=== PATIENT | male | born 1955 | race Caucasian/White ===

== ENCOUNTER 2020-06-05 08:54 | Outpatient (CLI) | payer MEDICARE, MEDICAID, SELFPAY ==
--- NOTE | 2020-06-05 09:04 | MR_ITS ---
WS: [id number] MRI LUMBAR SPINE NONCONTRAST TECHNIQUE: Sagittal T1, T2 and STIR imaging. Axial T1 and T2 imaging. CLINICAL INFORMATION: LOW BACK PAIN COMPARISON: None. FINDINGS: Mild lumbar curve. No acute compression. Slight anterolisthesis L3 on L4. Disc space narrowing worse at L3-L4, L4-L5, and L5-S1. L1-L2: Mild annular bulging. Slight effacement of the ventral thecal sac. Small right foraminal protr usion with moderate right foraminal narrowing. Mild facet arthropathy. L2-L3: Mild annular bulging. Mild right and no significant left foraminal narrowing. Slight narrowing of the right subarticular recess. Mild facet arthropathy. L3-L4: Disc osteophyte complex with severe central canal stenosis. Moderate facet arthropathy with li gamentum flavum hypertrophy. Impingement on the subarticular recess bilaterally. Severe left foramina l narrowing with impingement on the exiting left L3 nerve root. L4-L5: Disc osteophyte complex with endplate ridging. Mild central canal stenosis with impingement on the subarticular recess and traversing L5 nerve roots bilaterally. Moderate to severe right and mild left foraminal narrowing. L5-S1: Shallow central disc protrusion slightly contacts the traversing S1 nerve roots. Right eccentr ic disc osteophytic ridging results in moderate to severe right foraminal narrowing. Left foramen is patent. Mild facet arthropathy. Normal pelvic bony structures. MR/MR lumbar spine wo con* [id number] IMPRESSION: 1. Mild lumbar curve. No acute compression. 2. Severe central canal stenosis L3-4 due to disc bulging with facet arthropat hy and ligament flavum hypertrophy. Slight anterolisthesis at this level. 3. Mild central canal stenosis L4-5 with impingement subarticular recess bilat erally and traversing L5 nerve roots. 4. Multilevel foraminal narrowing worse at left L3-4 and right L4-5 moderate t o severe. 5. Moderate to severe right L5-S1 foraminal narrowing with right eccentric dis c osteophyte complex. 6. Shallow central disc protrusion L5-S1 contacts the traversing S1 nerve root s bilaterally. 7. Small right foraminal protrusion L1-2 with moderate right foraminal narrowi ng.
--- NOTE | 2020-06-05 09:04 | XR_ITS ---
WS: [id number] LUMBAR SPINE FLEXION AND EXTENSION TECHNIQUE: 3 views of the lumbar spine: Lateral neutral, flexion, and extension views. CLINICAL INFORMATION: LOW BACK PAIN COMPARISON: None. FINDINGS: Straightening of the normal lumbar lordosis. Slight anterolisthesis L3 on L4 measuring 2 mm. Space na rrowing worse at L3-L4 L4-L5 and L5-S1. No instability at L3-4. Mild flexion instability at L1-L2 measuring 4 mm. L1-L2 is normal alignment i n neutral and on extension. XR/XR lumbar spine f/e only [id number] IMPRESSION: 1. Mild flexion instability at L1-2 measuring 4 mm. 2. Slight anterolisthesis L3 on L4 measuring 2 mm in neutral. No instability o n flexion-extension. 3. Advanced disc space narrowing L3-L4 L4-L5 and L5-S1.
== END 2020-06-05 08:55 | disposition home or self-care (01) ==
LOC: RADWPI 09:02
PROVIDERS: Visit Provider Nurse Practitioner
DX: M53.2X6 Spinal instabilities, lumbar region (principal); M48.061 Spinal stenosis, lumbar region without neurogenic claudication; M51.26 Other intervertebral disc displacement, lumbar region; M47.816 Spondylosis without myelopathy or radiculopathy, lumbar region; M25.78 Osteophyte, vertebrae; M51.27 Other intervertebral disc displacement, lumbosacral region
CPT/HCPCS: 72120; 72148